=== PATIENT | male | born 1975 | race Two or more races ===

== ENCOUNTER 2020-07-31 09:43 | Day surgery (SDC) | payer OTHER ==
[~2020-07-31 09:43] MED LIST: BIKTARVY 50-201 EACH PO; HYDRA PO
[2020-07-31] MEDS ORDERED: PERCOCET 5-3251 EACH PO (12:16)
[2020-07-31] MEDS ORDERED: COLACE100 MG PO (12:17)
== END 2020-07-31 18:05 | disposition home or self-care (01) ==
LOC: CIR.AMB 09:43
PROVIDERS: ATTEND Surgery
DX: D01.3 Carcinoma in situ of anus and anal canal (principal); A63.0 Anogenital (venereal) warts; Z20.828 Contact with and (suspected) exposure to other viral communicable diseases; K60.1 Chronic anal fissure

== ENCOUNTER 2023-05-19 07:17 | Day surgery (SDC) | payer OTHER ==
[~2023-05-19] VITALS: Ht 177.8 cm; Wt 81.6 kg
[~2023-05-19 07:17] MED LIST changes: +COLACE100 MG PO; +PERCOCET 5-3251 EACH PO
[2023-05-19] MEDS ORDERED: NEURONTIN300 MG PO (09:02)
[2023-05-19] MEDS ORDERED: COLACE100 MG PO (09:02)
[2023-05-19] MEDS ORDERED: TRAM1TAB98 PO (09:02)
== END 2023-05-19 12:40 | disposition home or self-care (01) ==
LOC: CIR.AMB 07:17
PROVIDERS: ATTEND Surgery
DX: D37.5 Neoplasm of uncertain behavior of rectum (principal); K62.89 Other specified diseases of anus and rectum; K60.1 Chronic anal fissure; L85.8 Other specified epidermal thickening; B20 Human immunodeficiency virus [HIV] disease; Z20.822 Contact with and (suspected) exposure to COVID-19